=== PATIENT | female | born 1970 | race Caucasian/White ===

== ENCOUNTER 2016-06-11 11:22 | Day surgery (SDC) | payer BC ==
[~2016-06-11 11:22] MED LIST: ASPIRIN EC81 MG PO; BYSTOLIC10 M1 PO; CHLORASEPTIC SO2 LOZ MM; FISH OIL 1,0001 EA10 PO; NORCO 5-325 TA1 EACH PO; PANTOPRAZOLE SO20 M1 PO; PRAVACHOL40 M1 PO; ZYRTEC10 M7 PO
[2016-06-11 14:20] LABS: CSF GLUCOSE 52 mg/dl (40-75)
[2016-06-11 14:23] LABS: CSF APPEARANCE CLEAR (CLEAR); CSF COLOR COLORLESS (COLORLESS); CSF RBC CT 1 cmm (0); CSF TUBE NUMBER CSF TUBE 2; CSF WBC CT <1 cmm (0-10)
== END 2016-06-11 15:15 ==
LOC: SHSC 11:22
PROVIDERS: Psychiatry & Neurology Neurology
PROC: 009U3ZX Drainage of Spinal Canal, Percutaneous Approach, Diagnostic (ICD-10-PCS; principal; 2016-06-11)
PROC: B01BZZZ Fluoroscopy of Spinal Cord (ICD-10-PCS; 2016-06-11)
DX: R20.8 Other disturbances of skin sensation (principal)
CPT/HCPCS: J2250; J3010; J7030